=== PATIENT | male | born 1985 | race Two or more races ===

== ENCOUNTER → 2023-09-30 | Outpatient (CLI) | payer MEDICAID ==
[2023-09-30 08:25] LABS: Basophils # (auto) 0.1 10 ^3/uL (0-0.2); Eosinophils # (auto) 0.2 10 ^3/uL (0-0.8); Eosinophils % (auto) 2.7 % (0.0-7.0); Hematocrit 46.1 % (41.0-53.0); Hemoglobin 15.7 g/dL (13.5-17.5); Lymphocytes # (auto) 3.7 10 ^3/uL (0.4-5.4); Lymphocytes % (auto) 39.7 % (10.0-50.0); Mean Corpuscular Hemoglobin 32.6 pg (28.0-32.0); Mean Corpuscular Hgb Conc. 33.9 g/dL (32.0-36.0); Monocytes # (auto) 0.9 10 ^3/uL (0-1.3); Monocytes % (auto) 9.5 % (0.0-12.0); Neutrophils # (auto) 4.3 10 ^3/uL (1.6-8.6); Neutrophils % (auto) 47.1 % (37.0-80.0); Red Blood Cells 4.81 10^6/uL (4.5-5.90); Red Cell Distribution Width 13.3 % (11.8-14.3); White Blood Cell 9.2 10^3/uL (4.4-10.8)
== END | disposition home or self-care (01) ==
LOC: LAB 08:16
PROVIDERS: ATTEND Nurse Practitioner
DX: Z02.1 Encounter for pre-employment examination (principal)
CPT/HCPCS: 36415; 83036; 85025

== ENCOUNTER 2024-12-25 03:14 | Emergency (ER) | payer MEDICAID, OTHER ==
[~2024-12-25] VITALS: Ht 182.9 cm; Wt 113.6 kg
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
[2024-12-25 03:56] VITALS: PULSE 78; RESP 20; TEMP 98.1; O2SAT 98
[2024-12-25] MEDS: MORPHINE SULFATE INJ 2 MG/ml SYRG IV ONE (04:00)
[2024-12-25] MEDS: ONDANSETRON HCL 4 MG/2 ML VIAL IV ONE (04:00)
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
[2024-12-25 04:30] VITALS: BP 128/76; PULSE 72; RESP 18
[2024-12-25] MEDS ORDERED: TIZA-142 PO (04:59)
[2024-12-25] MEDS ORDERED: NABU-74 PO (04:59)
== END 2024-12-25 04:44 | disposition home or self-care (01) ==
LOC: EDBD 03:14 → ER 03:14 → EDUNIT# 03:14 → ER 04:44
DX: S50.11XA Contusion of right forearm, initial encounter (principal); S00.03XA Contusion of scalp, initial encounter; S00.432A Contusion of left ear, initial encounter; Y08.89XA Assault by other specified means, initial encounter; Y93.89 Activity, other specified; Y92.89 Other specified places as the place of occurrence of the external cause; Y99.8 Other external cause status
CPT/HCPCS: 70450; 72125; 73090; 96374; 96375; 99285; J2270; J2405